=== PATIENT | male | born 1980 | race Caucasian/White ===

== ENCOUNTER 2022-10-01 13:04 | Inpatient (IN) ==
--- NOTE | 2022-10-01 13:16 | Emergency Department Note ---
History of Present Illness General Chief complaint: Shortness of Breath/Dyspnea Stated complaint: TROUBLE BREATHING Time Seen by Provider: 10/01/22 13:15 History of Present Illness Maximum Pain Intensity: 8 This is a 42-year-old male with a history of COPD, CO, atrial fibrillation on Eliquis, diabetes, medical noncompliance, who presents with a cough, chills, and shortness of breath that began today. He feels like he cannot catch his breath. He is coughing so hard that it causes him to gag. He endorses a little bit of diarrhea recently. Could not warm up this morning, did not check his temperature. Feels like he is dehydrated, has been trying to drink fluids but is very thirsty. Uses a daily inhaler for his COPD but is out of his albuterol rescue inhaler. Has required steroids for COPD exacerbations in the past and he feels like he is to the point where he needs steroids for his breathing. Is in and out of atrial fibrillation. Has been taking his Eliquis as prescribe d. 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 He also has an implanted defibrillator in place, had an CO in 2020. Endorses a history of immunosuppression though he is unsure if he takes any medications for this. Has seen an hot knife cutter in the past. Has been feeling very lightheaded when he gets up and this caused him to fall today, though denies any significant trauma or hitting his head. Has not injured himself with any recent falls. He used to live in this area and was followed by [facility] in [place], moved to [place] for 2 years, and recently moved back 2 weeks ago. Used to be a 6 pack a day smoker, is down to 3 cigarettes/day. Tried smoking today but that did not agree with his respiratory system. Home Medications Medication Instructions Recorded Confirmed Type acetaminophen 325 mg tablet 650 mg PO Q6H PRN PAIN/FEVER 10/01/22 10/01/22 History (Tylenol) apixaban 5 mg tablet (Eliquis) 5 mg PO BID 10/01/22 10/01/22 History cetirizine 10 mg tablet (Zyrtec) 10 mg PO DAILY PRN SEASONAL 10/01/22 10/01/22 History ALLERGIES fluticasone 100 mcg-salmeterol 50 1 inh inhalation BID 10/01/22 10/01/22 History mcg/dose blistr powdr for inhalation (Advair Diskus) furosemide 40 mg tablet (Lasix) 40 mg PO AMHS 10/01/22 10/01/22 History menthol 5 % topical patch (Icy Hot 1 patch topical DAILY PRN Back Pain 10/01/22 10/01/22 History (menthol)) metoprolol succinate 25 mg 50 mg PO DAILY 10/01/22 10/01/22 History tablet,extended release 24 hr mupirocin 2 % topical ointment 1 applic topical DAILY 10/01/22 10/01/22 History omeprazole 20 mg tablet,delayed 20 mg PO QAM 10/01/22 10/01/22 History release ondansetron HCl 8 mg tablet 8 mg PO Q8H PRN NAUSEA/VOMITING 10/01/22 10/01/22 History pediatric multivitamin no.42 1 tab PO DAILY 10/01/22 10/01/22 History (Children's Multivitamin chewable tablet) quetiapine 100 mg tablet (Seroquel) 100 mg PO HS 10/01/22 10/01/22 History sacubitril 24 mg-valsartan 26 mg 1 tab PO BID 10/01/22 10/01/22 History tablet (Entresto) venlafaxine 75 mg capsule,extended 75 mg PO QAM 10/01/22 10/01/22 History release 24 hr (Effexor XR) Allergies Allergy/AdvReac Type Severity Reaction Status Date / Time azithromycin Allergy Severe Anaphylaxis Verified 10/01/22 14:53 pollen extracts Allergy Intermediate SNEEZING, Verified 10/01/22 15:00 CONGESTION sulfamethoxazole Allergy Intermediate Hives Verified 10/01/22 14:53 [From Bactrim] trimethoprim [From Bactrim] Allergy Intermediate Hives Verified 10/01/22 14:53 Past Med/Surg History Medical History Cardiac defibrillator in place COPD (chronic obstructive pulmonary disease) Heart failure Respiratory failure Surgical History No pertinent past surgical history Social History Smoking Status: Current every day smoker Tobacco Type: Cigarettes Cigarettes Per Day: 3; Hx Alcohol Use: No Hx Substance Use: No Preferred Language: Icelandic Supervisor Fine Grading Required: No Beliefs That Will Affect Care: None Current Living Situation: Family Feels Safe at Home: Yes Safety Concerns: Feels Safe At This Time Assistive Devices: CPAP Review of Systems See HPI for pertinent positives & negatives. and A total of 10 systems reviewed and were otherwise negative Physical Exam Vital Signs Vital Signs - 24 hr 10/01/22 13:07 10/01/22 14:00 10/01/22 14:17 Temperature 97.0 F L Temperature Source Temporal Artery Scan Pulse Rate 77 Pulse Rate [Apical] 130 H Pulse Rate from SpO2 Sensor Respiratory Rate 18 26 H Respiratory Effort / Characteristics Non-Labored Spontaneous Respiratory Depth Normal Respiratory Pattern Regular Blood Pressure 120/74 Blood Pressure Mean 89 Pulse Oximetry 93 92 Oxygen Delivery Method Room Air Nasal Cannula BiPAP Oxygen Flow Rate 2 Fraction of Inspired Oxygen 21 Sepsis Recent Fever Within 48 Hours No Sepsis New/Unexplained Change in Mental Status N/A Sepsis Action Taken by Nursing No Action Required Oxygen Flow Rate - Titration Pulse Oximetry Post Tiitration 10/01/22 14:17 10/01/22 14:22 10/01/22 14:25 Temperature Temperature Source Pulse Rate 130 H 139 H 133 H Pulse Rate [Apical] Pulse Rate from SpO2 Sensor 103 H Respiratory Rate 26 H 27 H Respiratory Effort / Characteristics Non-Labored Spontaneous Respiratory Depth Normal Respiratory Pattern Regular Blood Pressure 130/78 Blood Pressure Mean Pulse Oximetry 92 93 Oxygen Delivery Method BiPAP Oxygen Flow Rate Fraction of Inspired Oxygen 21 Sepsis Recent Fever Within 48 Hours Sepsis New/Unexplained Change in Mental Status Sepsis Action Taken by Nursing Oxygen Flow Rate - Titration Pulse Oximetry Post Tiitration 10/01/22 14:30 10/01/22 14:35 10/01/22 14:36 Temperature Temperature Source Pulse Rate 115 H 111 H Pulse Rate [Apical] Pulse Rate from SpO2 Sensor 98 H 93 H Respiratory Rate 32 H 20 Respiratory Effort / Characteristics Respiratory Depth Respiratory Pattern Blood Pressure 90/59 L Blood Pressure Mean 69 Pulse Oximetry 95 95 Oxygen Delivery Method BiPAP BiPAP Oxygen Flow Rate Fraction of Inspired Oxygen Sepsis Recent Fever Within 48 Hours Sepsis New/Unexplained Change in Mental Status Sepsis Action Taken by Nursing Oxygen Flow Rate - Titration Pulse Oximetry Post Tiitration 10/01/22 14:36 10/01/22 13:45 10/01/22 14:40 Temperature Temperature Source Pulse Rate 111 H 113 H Pulse Rate [Apical] Pulse Rate from SpO2 Sensor 108 H 99 H Respiratory Rate 26 H 16 Respiratory Effort / Characteristics Respiratory Depth Respiratory Pattern Blood Pressure Blood Pressure Mean Pulse Oximetry 95 96 Oxygen Delivery Method BiPAP Room Air BiPAP Oxygen Flow Rate Fraction of Inspired Oxygen Sepsis Recent Fever Within 48 Hours Sepsis New/Unexplained Change in Mental Status Sepsis Action Taken by Nursing Oxygen Flow Rate - Titration Pulse Oximetry Post Tiitration 10/01/22 14:45 10/01/22 14:50 10/01/22 14:55 Temperature Temperature Source Pulse Rate 115 H 111 H 116 H Pulse Rate [Apical] Pulse Rate from SpO2 Sensor 92 H 108 H 92 H Respiratory Rate 23 20 22 Respiratory Effort / Characteristics Respiratory Depth Respiratory Pattern Blood Pressure Blood Pressure Mean Pulse Oximetry 96 95 94 Oxygen Delivery Method BiPAP BiPAP BiPAP Oxygen Flow Rate Fraction of Inspired Oxygen Sepsis Recent Fever Within 48 Hours Sepsis New/Unexplained Change in Mental Status Sepsis Action Taken by Nursing Oxygen Flow Rate - Titration Pulse Oximetry Post Tiitration 10/01/22 15:00 10/01/22 15:00 10/01/22 15:05 Temperature Temperature Source Pulse Rate 114 H 107 H Pulse Rate [Apical] Pulse Rate from SpO2 Sensor Respiratory Rate 21 18 Respiratory Effort / Characteristics Respiratory Depth Respiratory Pattern Blood Pressure 118/65 Blood Pressure Mean 82 Pulse Oximetry Oxygen Delivery Method BiPAP Oxygen Flow Rate Fraction of Inspired Oxygen Sepsis Recent Fever Within 48 Hours Sepsis New/Unexplained Change in Mental Status Sepsis Action Taken by Nursing Oxygen Flow Rate - Titration Pulse Oximetry Post Tiitration 10/01/22 15:10 10/01/22 15:15 10/01/22 15:16 Temperature Temperature Source Pulse Rate 116 H 112 H Pulse Rate [Apical] Pulse Rate from SpO2 Sensor 111 H Respiratory Rate 23 18 Respiratory Effort / Characteristics Respiratory Depth Respiratory Pattern Blood Pressure 104/60 Blood Pressure Mean 74 Pulse Oximetry 94 Oxygen Delivery Method BiPAP Oxygen Flow Rate Fraction of Inspired Oxygen Sepsis Recent Fever Within 48 Hours Sepsis New/Unexplained Change in Mental Status Sepsis Action Taken by Nursing Oxygen Flow Rate - Titration Pulse Oximetry Post Tiitration 10/01/22 15:16 10/01/22 13:45 10/01/22 15:20 Temperature Temperature Source Pulse Rate 113 H 115 H Pulse Rate [Apical] Pulse Rate from SpO2 Sensor 94 H 91 H Respiratory Rate 26 H 24 Respiratory Effort / Characteristics Spontaneous Respiratory Depth Respiratory Pattern Blood Pressure Blood Pressure Mean Pulse Oximetry 95 95 Oxygen Delivery Method BiPAP Oxygen Flow Rate Fraction of Inspired Oxygen Sepsis Recent Fever Within 48 Hours Sepsis New/Unexplained Change in Mental Status Sepsis Action Taken by Nursing Oxygen Flow Rate - Titration Pulse Oximetry Post Tiitration 10/01/22 15:25 10/01/22 15:30 10/01/22 15:30 Temperature Temperature Source Pulse Rate 117 H 115 H Pulse Rate [Apical] Pulse Rate from SpO2 Sensor 90 101 H Respiratory Rate 15 25 H Respiratory Effort / Characteristics Respiratory Depth Respiratory Pattern Blood Pressure 105/61 Blood Pressure Mean 75 Pulse Oximetry 97 98 Oxygen Delivery Method Oxygen Flow Rate Fraction of Inspired Oxygen Sepsis Recent Fever Within 48 Hours Sepsis New/Unexplained Change in Mental Status Sepsis Action Taken by Nursing Oxygen Flow Rate - Titration Pulse Oximetry Post Tiitration 10/01/22 15:35 10/01/22 15:40 10/01/22 15:44 Temperature Temperature Source Pulse Rate 120 H 110 H 131 H Pulse Rate [Apical] Pulse Rate from SpO2 Sensor 115 H 93 H 90 Respiratory Rate 20 23 23 Respiratory Effort / Characteristics Respiratory Depth Respiratory Pattern Blood Pressure Blood Pressure Mean Pulse Oximetry 97 95 93 Oxygen Delivery Method Oxygen Flow Rate Fraction of Inspired Oxygen Sepsis Recent Fever Within 48 Hours Sepsis New/Unexplained Change in Mental Status Sepsis Action Taken by Nursing Oxygen Flow Rate - Titration Pulse Oximetry Post Tiitration 10/01/22 15:45 10/01/22 15:45 10/01/22 15:50 Temperature Temperature Source Pulse Rate 128 H 120 H Pulse Rate [Apical] Pulse Rate from SpO2 Sensor 121 H 95 H Respiratory Rate 23 21 Respiratory Effort / Characteristics Respiratory Depth Respiratory Pattern Blood Pressure 95/64 L Blood Pressure Mean 74 Pulse Oximetry 95 94 Oxygen Delivery Method Oxygen Flow Rate Fraction of Inspired Oxygen Sepsis Recent Fever Within 48 Hours Sepsis New/Unexplained Change in Mental Status Sepsis Action Taken by Nursing Oxygen Flow Rate - Titration Pulse Oximetry Post Tiitration 10/01/22 15:55 10/01/22 16:00 10/01/22 16:01 Temperature Temperature Source Pulse Rate 150 H 129 H Pulse Rate [Apical] Pulse Rate from SpO2 Sensor 133 H Respiratory Rate 31 H 24 Respiratory Effort / Characteristics Respiratory Depth Respiratory Pattern Blood Pressure 100/66 100/66 Blood Pressure Mean 77 77 Pulse Oximetry 96 Oxygen Delivery Method Oxygen Flow Rate Fraction of Inspired Oxygen Sepsis Recent Fever Within 48 Hours Sepsis New/Unexplained Change in Mental Status Sepsis Action Taken by Nursing Oxygen Flow Rate - Titration Pulse Oximetry Post Tiitration 10/01/22 16:01 10/01/22 16:05 10/01/22 16:10 Temperature Temperature Source Pulse Rate 117 H 113 H 113 H Pulse Rate [Apical] Pulse Rate from SpO2 Sensor 112 H 105 H Respiratory Rate 27 H 23 22 Respiratory Effort / Characteristics Respiratory Depth Respiratory Pattern Blood Pressure Blood Pressure Mean Pulse Oximetry 95 94 Oxygen Delivery Method Oxygen Flow Rate Fraction of Inspired Oxygen Sepsis Recent Fever Within 48 Hours Sepsis New/Unexplained Change in Mental Status Sepsis Action Taken by Nursing Oxygen Flow Rate - Titration Pulse Oximetry Post Tiitration 10/01/22 16:15 10/01/22 16:15 10/01/22 16:20 Temperature Temperature Source Pulse Rate 120 H 114 H Pulse Rate [Apical] Pulse Rate from SpO2 Sensor 96 H 98 H Respiratory Rate 24 21 Respiratory Effort / Characteristics Respiratory Depth Respiratory Pattern Blood Pressure 89/67 L Blood Pressure Mean 74 Pulse Oximetry 94 97 Oxygen Delivery Method Oxygen Flow Rate Fraction of Inspired Oxygen Sepsis Recent Fever Within 48 Hours Sepsis New/Unexplained Change in Mental Status Sepsis Action Taken by Nursing Oxygen Flow Rate - Titration Pulse Oximetry Post Tiitration 10/01/22 16:25 10/01/22 16:30 10/01/22 16:35 Temperature Temperature Source Pulse Rate 114 H 129 H 113 H Pulse Rate [Apical] Pulse Rate from SpO2 Sensor 99 H 114 H 107 H Respiratory Rate 23 23 24 Respiratory Effort / Characteristics Respiratory Depth Respiratory Pattern Blood Pressure Blood Pressure Mean Pulse Oximetry 93 93 91 Oxygen Delivery Method Oxygen Flow Rate Fraction of Inspired Oxygen Sepsis Recent Fever Within 48 Hours Sepsis New/Unexplained Change in Mental Status Sepsis Action Taken by Nursing Oxygen Flow Rate - Titration Pulse Oximetry Post Tiitration 10/01/22 16:40 10/01/22 16:45 10/01/22 16:45 Temperature Temperature Source Pulse Rate 113 H 107 H Pulse Rate [Apical] Pulse Rate from SpO2 Sensor 113 H 104 H Respiratory Rate 30 H 20 Respiratory Effort / Characteristics Respiratory Depth Respiratory Pattern Blood Pressure 119/76 Blood Pressure Mean 90 Pulse Oximetry 92 90 Oxygen Delivery Method Room Air Oxygen Flow Rate Fraction of Inspired Oxygen Sepsis Recent Fever Within 48 Hours Sepsis New/Unexplained Change in Mental Status Sepsis Action Taken by Nursing Oxygen Flow Rate - Titration Pulse Oximetry Post Tiitration 10/01/22 16:50 10/01/22 16:55 10/01/22 17:00 Temperature Temperature Source Pulse Rate 113 H 109 H Pulse Rate [Apical] Pulse Rate from SpO2 Sensor 88 103 H Respiratory Rate 20 22 Respiratory Effort / Characteristics Respiratory Depth Respiratory Pattern Blood Pressure 113/68 Blood Pressure Mean 83 Pulse Oximetry 92 88 L Oxygen Delivery Method Room Air Room Air Oxygen Flow Rate Fraction of Inspired Oxygen Sepsis Recent Fever Within 48 Hours Sepsis New/Unexplained Change in Mental Status Sepsis Action Taken by Nursing Oxygen Flow Rate - Titration Pulse Oximetry Post Tiitration 10/01/22 17:00 10/01/22 17:07 10/01/22 16:00 Temperature 98.1 F Temperature Source Oral Pulse Rate 106 H Pulse Rate [Apical] Pulse Rate from SpO2 Sensor 105 H Respiratory Rate 18 Respiratory Effort / Characteristics Respiratory Depth Respiratory Pattern Blood Pressure Blood Pressure Mean Pulse Oximetry 91 85 L Oxygen Delivery Method Room Air Nasal Cannula Oxygen Flow Rate 0 Fraction of Inspired Oxygen Sepsis Recent Fever Within 48 Hours Sepsis New/Unexplained Change in Mental Status Sepsis Action Taken by Nursing Oxygen Flow Rate - Titration 2 Pulse Oximetry Post Tiitration 91 10/01/22 17:05 10/01/22 17:10 Temperature Temperature Source Pulse Rate 109 H 101 H Pulse Rate [Apical] Pulse Rate from SpO2 Sensor 103 H 101 H Respiratory Rate 23 23 Respiratory Effort / Characteristics Respiratory Depth Respiratory Pattern Blood Pressure Blood Pressure Mean Pulse Oximetry 96 85 L Oxygen Delivery Method Oxygen Flow Rate Fraction of Inspired Oxygen Sepsis Recent Fever Within 48 Hours Sepsis New/Unexplained Change in Mental Status Sepsis Action Taken by Nursing Oxygen Flow Rate - Titration Pulse Oximetry Post Tiitration CONSTITUTIONAL: Obese, ill appearing, in mild distress. Intermittently dozes, able to be aroused with verbal stimuli. HEAD: Normocephalic, atraumatic. EYES: PERRL, conjunctivae normal, extraocular muscles intact. ENMT: External ears normal. Bilateral TMs normal. Nose with normal external appearance, no congestion. Oral mucous membranes dry. Oropharynx normal. NECK: Full active range of motion. LYMPHATIC: No cervical adenopathy RESPIRATORY: Tachypneic. Unable to speak in complete sentences. Intermittently coughing. Decreased breath sounds in all lung méndez. Wheeze appreciated with cough. CARDIOVASCULAR: Regular rate, irregular rhythm. No murmurs rubs or gallops ABDOMEN: Normal bowel sounds. Soft, nontender, no peritonitis. No masses. No CVA tenderness bilaterally. MUSCULOSKELETAL: Moves all extremities at all joints without pain or difficulty. No cyanosis or edema in lower extremities, no tenderness. SKIN: [place], warm, dry. NEUROLOGIC: Dozes with rest. Able to be aroused with verbal stimulus. Otherwise oriented. Gaze is conjugate. Face symmetric, speech normal. Moves head and all four extremities spontaneously. Sensation and strength grossly intact. PSYCHIATRIC: Anxious appearing. Course Reevaluation(s) Reevaluation #1: Was notified that the patient was in SVT based on his EKG in the 160s. I evaluated him at bedside. Heart rate is between [address] Torres was notified and evaluated the patient at bedside as well. Patient still answering questions appropriately though does fall asleep when left alone, re sponds to verbal stimulus. It appears the patient is between SVT and atrial fibrillation. IV fluids administered. Placed on BiPAP. Xopenex ordered. Time: 14:06 Administered Medications Ipratropium Duarte (Ipratropium Duarte Neb Soln 0.02% 2.5 Ml Vial) 0.5 mg NEB QID SATURNINO Stop: 10/31/22 20:59 Last Admin: 10/01/22 21:09 Dose: 0.5 mg Documented By: KENDRA Levalbuterol HCl (Levalbuterol Hcl 0.63 Mg/3 Ml Neb) 0.63 mg NEB QID SATURNINO; Protocol Stop: 10/31/22 20:59 Last Admin: 10/01/22 21:09 Dose: 0.63 mg Documented By: KENDRA Discontinued Medications Adenosine (Adenosine Iv Soln 3 Mg/Ml 2 Ml Vial) 6 mg IV NOW STA Stop: 10/01/22 13:55 Last Admin: 10/01/22 15:25 Dose: Not Given Documented By: ABRAM Albuterol (Albut/Ipratrop 3mg/0.5mg Neb 3 Ml Vial) 3 ml NEB NOW STA; Protocol Stop: 10/01/22 13:37 Last Admin: 10/01/22 14:21 Dose: Not Given Documented By: KENNY Dexamethasone Sodium Phosphate (DexamethasonePf 10 Mg/Ml Vial) 10 mg PO NOW ONE Stop: 10/01/22 13:37 Last Admin: 10/01/22 15:25 Dose: Not Given Documented By: ABRAM Sodium Chloride (Nss 1000ml) 1,000 mls @ 500 mls/hr IV .Q2H ONE Stop: 10/01/22 15:35 Last Infusion: 10/01/22 14:15 Dose: 0 mls/hr Documented By: Admin: 10/01/22 13:45 Dose: 500 mls/hr Documented By: ABRAM Magnesium Sulfate/Dextrose (Magnesium Sulfate / D5w) 1 gm in 100 mls @ 50 mls/hr IV ONE ONE Stop: 10/01/22 18:13 Last Infusion: 10/01/22 17:26 Dose: 0 mls/hr Documented By: Admin: 10/01/22 16:26 Dose: 50 mls/hr Documented By: ABRAM Sodium Chloride (Nss 1000ml) 500 mls @ 999 mls/hr IV .Q31M ONE Stop: 10/01/22 16:50 Last Infusion: 10/01/22 16:57 Dose: 0 mls/hr Documented By: Admin: 10/01/22 16:26 Dose: 999 mls/hr Documented By: ABRAM Levalbuterol HCl (Levalbuterol Hcl 1.25 Mg/3 Ml Neb) 2.5 mg NEB NOW STA; Protocol Stop: 10/01/22 14:05 Last Admin: 10/01/22 14:21 Dose: 2.5 mg Documented By: KENNY Methylprednisolone (Methylprednisolone 125 Mg/2 Ml Vial) 60 mg IV NOW STA Stop: 10/01/22 15:15 Last Admin: 10/01/22 15:22 Dose: 60 mg Documented By: ABRAM Metoprolol Tartrate (Metoprolol Tartrate 1 Mg/Ml Vial) 5 mg IV Q5M PRN PRN Reason: Tachycardia Stop: 10/31/22 14:15 Last Admin: 10/01/22 14:22 Dose: 5 mg Documented By: LOURDES Oseltamivir Phosphate (Oseltamivir Phosphate 75 Mg Cap) 75 mg PO NOW STA; Protocol Stop: 10/01/22 15:43 Last Admin: 10/01/22 15:49 Dose: 75 mg Documented By: ABRAM Medical Decision Making Differential Diagnosis Upper respiratory infection, COPD exacerbation, pneumonia, arrhythmia, electrolyte imbalance, dehydration, CHF exacerbation, CO, PE, sepsis, among other pathology Medical Records Attestation: I reviewed the patient's medical records. (Records were reviewed from [facility] cardiology from 09/27/2022. Records were retrieved from [place].) Laboratory Data Result diagrams: 10/01/22 13:53 10/01/22 13:53 Lab Results 10/01/22 10/01/22 10/01/22 Range/Units 13:52 13:53 13:53 WBC 9.51 (4.8-10.8) K/ul RBC 4.67 (4.63-6.08) M/uL Hgb 14.2 (14.0-18.0) g/dl Hct 43.3 (40.1-51.0) % MCV 92.7 (80.0-100.0) fL MCH 30.4 (25.0-34.0) pg MCHC 32.8 (32.0-36.0) g/dL RDW Std Deviation 47.8 H (36.4-46.3) fL RDW Coeff of Pradeep 14.2 (11.5-14.5) % Plt Count 258 (130-400) K/uL MPV 9.3 L (9.4-12.4) fL Immature Gran % (Auto) 0.7 % Neut % (Auto) 78.4 % Lymph % (Auto) 10.2 % [place] % (Auto) 8.3 % Eos % (Auto) 2.0 % Baso % (Auto) 0.4 % Neut # (Auto) 7.45 H (1.4-6.5) K/uL Lymph # (Auto) 0.97 L (1.2-3.4) K/uL [place] # (Auto) 0.79 (0.24-0.82) K/uL Eos # (Auto) 0.19 (0-0.50) K/uL Baso # (Auto) 0.04 (0-0.2) K/uL Immature Gran # (Auto) 0.07 H (0.00-0.02) K/uL Absolute Nucleated RBC 0.02 H (0-0) K/uL Nucleated RBC % (auto) 0.2 % PT (9.0-12.0) Seconds INR (0.9-1.1) APTT (21.0-31.0) Seconds PTT Ratio VBG pH (7.36-7.41) VBG pCO2 (38-50) mmHg VBG pO2 mmHg VBG HCO3 mmol/L VBG O2 Saturation % VBG Base Excess mEq/L Sodium 136 (136-145) mmol/L Potassium 4.3 (3.5-5.1) mmol/L Chloride 97 L (98-107) mmol/L Carbon Dioxide 32 (21-32) mmol/L Anion Gap 7 (3-11) BUN 14 (6-23) mg/dl Creatinine 1.25 (0.6-1.4) mg/dl Est Cr Clr Drug Dosing Not Reportable Est GFR ( Amer) 81.2 ml/min Est GFR (Non-Af Amer) 70.1 ml/min BUN/Creatinine Ratio 11.2 (10-20) Glucose 165 H (70-99(Fasting)) mg/dl Calcium 8.7 (8.5-10.1) mg/dl Phosphorus (2.5-4.9) mg/dl Magnesium (1.7-2.4) mg/dl Total Bilirubin 0.7 (0.2-1.0) mg/dl AST 17 (13-39) U/L ALT 14 (7-52) U/L Alkaline Phosphatase 88 (34-104) U/L Troponin I High Sens 9.4 (0-20) pg/ml B-Natriuretic Peptide (0-100) pg/ml Total Protein 7.5 (6.0-8.3) gm/dl Albumin 3.9 (3.4-5.0) gm/dl Globulin 3.6 (2.5-4.0) gm/dl Albumin/Globulin Ratio 1.1 (0.9-2) Adenovirus (PCR) Not Detected (NotDetected) B. pertussis DNA (PCR) Not Detected (NotDetected) B.parapertussis DNA PCR Not Detected (NotDetected) C. pneumoniae DNA (PCR) Not Detected (NotDetected) Coronavirus OC43 (PCR) Not Detected (NotDetected) Coronavirus HKU1 (PCR) Not Detected (NotDetected) Coronavirus 229E (PCR) Not Detected (NotDetected) SARS-CoV-2 (PCR) Not Detected (NotDetected) Coronavirus NL63 (PCR) Not Detected (NotDetected) Human Metapneumovir PCR Not Detected (NotDetected) Influenza A (H3) PCR DETECTED A* (NotDetected) Influenza Type B (PCR) Not Detected (NotDetected) M. pneumoniae (PCR) Not Detected (NotDetected) Parainfluenza 1 (PCR) Not Detected (NotDetected) Parainfluenza 2 (PCR) Not Detected (NotDetected) Parainfluenza 3 (PCR) Not Detected (NotDetected) Parainfluenza 4 (PCR) Not Detected (NotDetected) RSV (PCR) Not Detected (NotDetected) Entero/Rhino (PCR) Not Detected (NotDetected) 10/01/22 10/01/22 10/01/22 Range/Units 14:39 14:39 14:39 WBC (4.8-10.8) K/ul RBC (4.63-6.08) M/uL Hgb (14.0-18.0) g/dl Hct (40.1-51.0) % MCV (80.0-100.0) fL MCH (25.0-34.0) pg MCHC (32.0-36.0) g/dL RDW Std Deviation (36.4-46.3) fL RDW Coeff of Pradeep (11.5-14.5) % Plt Count (130-400) K/uL MPV (9.4-12.4) fL Immature Gran % (Auto) % Neut % (Auto) % Lymph % (Auto) % [place] % (Auto) % Eos % (Auto) % Baso % (Auto) % Neut # (Auto) (1.4-6.5) K/uL Lymph # (Auto) (1.2-3.4) K/uL [place] # (Auto) (0.24-0.82) K/uL Eos # (Auto) (0-0.50) K/uL Baso # (Auto) (0-0.2) K/uL Immature Gran # (Auto) (0.00-0.02) K/uL Absolute Nucleated RBC (0-0) K/uL Nucleated RBC % (auto) % PT 11.2 (9.0-12.0) Seconds INR 1.1 (0.9-1.1) APTT 28.3 (21.0-31.0) Seconds PTT Ratio 1.0 VBG pH 7.45 H (7.36-7.41) VBG pCO2 47 (38-50) mmHg VBG pO2 64 mmHg VBG HCO3 33 mmol/L VBG O2 Saturation 94.1 % VBG Base Excess 7.5 mEq/L Sodium (136-145) mmol/L Potassium (3.5-5.1) mmol/L Chloride (98-107) mmol/L Carbon Dioxide (21-32) mmol/L Anion Gap (3-11) BUN (6-23) mg/dl Creatinine (0.6-1.4) mg/dl Est Cr Clr Drug Dosing Est GFR ( Amer) ml/min Est GFR (Non-Af Amer) ml/min BUN/Creatinine Ratio (10-20) Glucose (70-99(Fasting)) mg/dl Calcium (8.5-10.1) mg/dl Phosphorus 1.9 L (2.5-4.9) mg/dl Magnesium 1.3 L (1.7-2.4) mg/dl Total Bilirubin (0.2-1.0) mg/dl AST (13-39) U/L ALT (7-52) U/L Alkaline Phosphatase (34-104) U/L Troponin I High Sens (0-20) pg/ml B-Natriuretic Peptide (0-100) pg/ml Total Protein (6.0-8.3) gm/dl Albumin (3.4-5.0) gm/dl Globulin (2.5-4.0) gm/dl Albumin/Globulin Ratio (0.9-2) Adenovirus (PCR) (NotDetected) B. pertussis DNA (PCR) (NotDetected) B.parapertussis DNA PCR (NotDetected) C. pneumoniae DNA (PCR) (NotDetected) Coronavirus OC43 (PCR) (NotDetected) Coronavirus HKU1 (PCR) (NotDetected) Coronavirus 229E (PCR) (NotDetected) SARS-CoV-2 (PCR) (NotDetected) Coronavirus NL63 (PCR) (NotDetected) Human Metapneumovir PCR (NotDetected) Influenza A (H3) PCR (NotDetected) Influenza Type B (PCR) (NotDetected) M. pneumoniae (PCR) (NotDetected) Parainfluenza 1 (PCR) (NotDetected) Parainfluenza 2 (PCR) (NotDetected) Parainfluenza 3 (PCR) (NotDetected) Parainfluenza 4 (PCR) (NotDetected) RSV (PCR) (NotDetected) Entero/Rhino (PCR) (NotDetected) 10/01/22 10/01/22 Range/Units 14:39 16:05 WBC (4.8-10.8) K/ul RBC (4.63-6.08) M/uL Hgb (14.0-18.0) g/dl Hct (40.1-51.0) % MCV (80.0-100.0) fL MCH (25.0-34.0) pg MCHC (32.0-36.0) g/dL RDW Std Deviation (36.4-46.3) fL RDW Coeff of Pradeep (11.5-14.5) % Plt Count (130-400) K/uL MPV (9.4-12.4) fL Immature Gran % (Auto) % Neut % (Auto) % Lymph % (Auto) % [place] % (Auto) % Eos % (Auto) % Baso % (Auto) % Neut # (Auto) (1.4-6.5) K/uL Lymph # (Auto) (1.2-3.4) K/uL [place] # (Auto) (0.24-0.82) K/uL Eos # (Auto) (0-0.50) K/uL Baso # (Auto) (0-0.2) K/uL Immature Gran # (Auto) (0.00-0.02) K/uL Absolute Nucleated RBC (0-0) K/uL Nucleated RBC % (auto) % PT (9.0-12.0) Seconds INR (0.9-1.1) APTT (21.0-31.0) Seconds PTT Ratio VBG pH (7.36-7.41) VBG pCO2 (38-50) mmHg VBG pO2 mmHg VBG HCO3 mmol/L VBG O2 Saturation % VBG Base Excess mEq/L Sodium (136-145) mmol/L Potassium (3.5-5.1) mmol/L Chloride (98-107) mmol/L Carbon Dioxide (21-32) mmol/L Anion Gap (3-11) BUN (6-23) mg/dl Creatinine (0.6-1.4) mg/dl Est Cr Clr Drug Dosing Est GFR ( Amer) ml/min Est GFR (Non-Af Amer) ml/min BUN/Creatinine Ratio (10-20) Glucose (70-99(Fasting)) mg/dl Calcium (8.5-10.1) mg/dl Phosphorus (2.5-4.9) mg/dl Magnesium (1.7-2.4) mg/dl Total Bilirubin (0.2-1.0) mg/dl AST (13-39) U/L ALT (7-52) U/L Alkaline Phosphatase (34-104) U/L Troponin I High Sens 10.6 (0-20) pg/ml B-Natriuretic Peptide 54 (0-100) pg/ml Total Protein (6.0-8.3) gm/dl Albumin (3.4-5.0) gm/dl Globulin (2.5-4.0) gm/dl Albumin/Globulin Ratio (0.9-2) Adenovirus (PCR) (NotDetected) B. pertussis DNA (PCR) (NotDetected) B.parapertussis DNA PCR (NotDetected) C. pneumoniae DNA (PCR) (NotDetected) Coronavirus OC43 (PCR) (NotDetected) Coronavirus HKU1 (PCR) (NotDetected) Coronavirus 229E (PCR) (NotDetected) SARS-CoV-2 (PCR) (NotDetected) Coronavirus NL63 (PCR) (NotDetected) Human Metapneumovir PCR (NotDetected) Influenza A (H3) PCR (NotDetected) Influenza Type B (PCR) (NotDetected) M. pneumoniae (PCR) (NotDetected) Parainfluenza 1 (PCR) (NotDetected) Parainfluenza 2 (PCR) (NotDetected) Parainfluenza 3 (PCR) (NotDetected) Parainfluenza 4 (PCR) (NotDetected) RSV (PCR) (NotDetected) Entero/Rhino (PCR) (NotDetected) Imaging Data Attestation: I personally reviewed and interpreted this imaging study as follows: (I agree with the radiologist's interpretation) Radiologist's Impression: Chest X-Ray 10/01/22 13:36 XR chest 1V portable HISTORY: 42 years-old Male dyspnea, suspect COPD exacerbation acute shortness of breath COMPARISON: None TECHNIQUE: Portable AP view of the chest FINDINGS: Cardiac silhouette is enlarged. Single lead left subclavian pacer/AICD. No pneumothorax or overt pulmonary edema. Blunting of the costophrenic angles. Mild right hemidiaphragmatic elevation. Bones appear grossly intact. IMPRESSION: 1. Cardiomegaly without pulmonary edema. 2. Blunting of the costophrenic angles may be secondary to atelectasis versus trace effusions. ACT 112: Negative or not required by law. The above report was generated using voice recognition software. It may contain grammatical, syntax or spelling errors. Electronically signed by: Christoph Leavitt M.D. 10/01/2022 2:16 PM ECG Data Attestation: I personally reviewed and interpreted this ECG as follows: Additional Comments: EKG #1: Supraventricular tachycardia rate of 163. Evidence of inferior infarct. No prior to compare. EKG #2: Sinus tachycardia, irregular versus atrial fibrillation. Intervals within normal limits. Left axis deviation. Inferior infarct. No acute ST elevation MDM Narrative 42-year-old male with a complex medical history presents with cough, chills, shortness of breath that began today. On initial exam, patient anxious appearing, coughing, tachypneic, drowsy, easily stimulated by verbal command, able to speak in 3-5 word sentences. O2 saturation 93% on room air. Decreased air movement diffusely, wheezy cough. Afebrile. During my evaluation his heart rate was anywhere between 90 and 160 on the pulse oximeter. EKG quickly obtained revealing SVT at 163. ED attending Dr. Torres notified and we both evaluated the patient at bedside. This rhythm quickly turned into rapid atrial fibrillation with several runs of SVT but predominantly stayed in rapid atrial fibrillation. IV fluids were administered, BiPAP placed, treated with methylprednisolone and metoprolol. Order was placed for continuous cardiac monitoring and patient was visualized to remain tachycardic between sinus rhythm and rapid atrial fibrillation in the 120s. Heart rate trended into the low 100s with additional fluids. Pressure remained normal to soft intermittently. Mental status did not change. O2 saturation remained in the low 90s. Chest x-ray shows cardiomegaly without pulmonary edema, blunting of the costophrenic angles atelectasis versus trace pleural effusions. Labs show no leukocytosis or anemia. Mild hyperglycemia at 165, recent A1c 8.0 on 09/27/2022. Magnesium 1.3, repleted in the emergency department. Hypophosphatemia is present at 1.9. [employer] upper respiratory panel was POSITIVE for influenza A. This is likely the etiology of his symptoms. Tamiflu administered as he is high risk for progression of severe disease. First and second troponins are negative. Prior [facility] cardiology records were reviewed, extensive cardiopulmonary history, history of medical noncompliance. Dr. Torres spoke with [facility] hospitalist Dr. Qiu who will admit the patient for ongoing management. Impression & Plan Influenza, Atrial fibrillation, rapid, Hypomagnesemia, Acute exacerbation of chronic obstructive pulmonary disease (COPD), Respiratory failure, Hypophosphatemia Discharge Plan Visit Data Chief Complaint: Shortness of Breath/Dyspnea Stated Complaint: TROUBLE BREATHING ED Provider: Bacilio Torres ED Midlevel Provider: Felice Kingsley Discharge Problem: Influenza, Atrial fibrillation, rapid, Hypomagnesemia, Acute exacerbation of chronic obstructive pulmonary disease (COPD), Respiratory failure, Hypophosphatemia Patient Disposition: Admitted As Inpatient Condition: Fair Discharge Instructions Interventions: ED Discharge Assessment Last Done: 10/01/22 18:29 : Respiratory failure Qualifiers: Chronicity: acute Respiratory failure complication: unspecified whether with hypoxia or hypercapnia Qualified Code(s): J96.00 - Acute respiratory failure, unspecified whether with hypoxia or hypercapnia
[2022-10-01] MEDS ORDERED: ALBUT/IPRATROP 3MG/0.5MG NEB 3 ML VIAL NEB STA (13:36)
[2022-10-01] MEDS ORDERED: SODIUM CHLORIDE 0.9% 1000ML 1,000 ML IV ONE (13:36)
[2022-10-01] MEDS ORDERED: dexAMETHasone**PF** 10 MG/ML VIAL PO ONE (13:36)
[2022-10-01] MEDS ORDERED: ADENOSINE IV SOLN 3 MG/ML 2 ML VIAL IV STA (13:54)
[2022-10-01 14:03] LABS: Basophils # (auto) 0.04 K/uL (0-0.2); Basophils % (auto) 0.4 %; Eosinophils # (auto) 0.19 K/uL (0-0.50); Hematocrit (blood only) 43.3 % (40.1-51.0); Hemoglobin 14.2 g/dl (14.0-18.0); Immature Granulocytes # (auto) 0.07 K/uL (0.00-0.02); Immature Granulocytes % (auto) 0.7 %; Lymphocytes # (auto) 0.97 K/uL (1.2-3.4); Lymphocytes % (auto) 10.2 %; Mean Corpuscular Hemoglobin 30.4 pg (25.0-34.0); Mean Corpuscular Hgb Conc 32.8 g/dL (32.0-36.0); Mean Corpuscular Volume 92.7 fL (80.0-100.0); Mean Platelet Volume 9.3 fL (9.4-12.4); Monocytes # (auto) 0.79 K/uL (0.24-0.82); Monocytes % (auto) 8.3 %; Neutrophils # (auto) 7.45 K/uL (1.4-6.5); Neutrophils % (auto) 78.4 %; Nucleated RBC # (auto) 0.02 K/uL (0-0); Nucleated RBC % (auto) 0.2 %; Platelet Count 258 K/uL (130-400); RDW Coefficient of Variation 14.2 % (11.5-14.5); RDW Standard Deviation 47.8 fL (36.4-46.3); Red Blood Count 4.67 M/uL (4.63-6.08); White Blood Count 9.51 K/ul (4.8-10.8)
[2022-10-01] MEDS ORDERED: LEVALBUTEROL HCL 1.25 MG/3 ML NEB NEB STA (14:04)
--- NOTE | 2022-10-01 14:08 | Emergency Department Note ---
ED Visit Note NAME: NHI DUARTE AGE: 42 SEX: M : 1980 ARRIVES VIA: Walk-In INFORMANT: Patient, ED PROVIDER(S): Bacilio Torres MD Please refer to initial H&P by Felice Sheldon PA-C. I was involved in the patient's care as he developed a tachycarrthymia SVT and a fib w/ RVR. Patient presents due to concern for URI related symptoms. I was asked to evaluate patient by Felice Kingsley PA-C and essentially the primary last puller of the patient. Patient did have a run of SVT. The patient did feel short of breath beginning this morning. His initial triage vitals showed that his heart rate was in the low 90s and may have been irregular. Patient has known history of A. fib. The patient has used a lot of tobacco in the past but is down to about 3 cigarettes/day. The patient does follow with [facility] medicine. Patient denies any chest pains. Cough is nonproductive. No abdominal pain nausea vomiting. Patient did have blood work completed along with an EKG t roponin chest x-ray. Patient did have a Xopenex administered along with dexamethasone IV fluids and BiPAP was placed on the patient due to concern for work of breathing. Improved work of breathing. HR improved as well. Patient admitted by Dr. Qiu. Critical Care: I have personally spent 75 minutes of critical care time in direct management of this patient. This includes bedside care, interpretation of diagnostic studies, and testing, discussion with consultants, patient, and family members, and other require inpatient management activities. This 75 minutes is in excess of all separately billable procedures. : Respiratory failure Qualifiers: Chronicity: acute Respiratory failure complication: unspecified whether with hypoxia or hypercapnia Qualified Code(s): J96.00 - Acute respiratory failure, unspecified whether with hypoxia or hypercapnia
[2022-10-01] MEDS ORDERED: METOPROLOL TARTRATE 1 MG/ML VIAL IV PRN (14:16)
--- NOTE | 2022-10-01 14:17 | XRay Report ---
XR chest 1V portable HISTORY: 42 years-old Male dyspnea, suspect COPD exacerbation acute shortness of breath COMPARISON: None TECHNIQUE: Portable AP view of the chest FINDINGS: Cardiac silhouette is enlarged. Single lead left subclavian pacer/AICD. No pneumothorax or overt pulm onary edema. Blunting of the costophrenic angles. Mild right hemidiaphragmatic elevation. Bones appea r grossly intact. IMPRESSION: 1. Cardiomegaly without pulmonary edema. 2. Blunting of the costophrenic angles may be secondary to atelectasis versus trace effusions. ACT 112: Negative or not required by law. The above report was generated using voice recognition software. It may contain grammatical, syntax o r spelling errors. Electronically signed by: Christoph Leavitt M.D. 10/01/2022 2:16 PM
[2022-10-01 14:27] LABS: Alanine Aminotransferase 14 U/L (7-52); Albumin Globulin Ratio 1.1 (0.9-2); Albumin Level 3.9 gm/dl (3.4-5.0); Alkaline Phosphatase 88 U/L (34-104); Anion Gap 7 (3-11); Aspartate Aminotransferase 17 U/L (13-39); BUN Creatinine Ratio 11.2 (10-20); Bilirubin,Total 0.7 mg/dl (0.2-1.0); Blood Urea Nitrogen 14 mg/dl (6-23); Calcium 8.7 mg/dl (8.5-10.1); Carbon Dioxide 32 mmol/L (21-32); Chloride 97 mmol/L (98-107); Est GFR (African American) 81.2 ml/min; Est GFR (Non-African American) 70.1 ml/min; Globulin 3.6 gm/dl (2.5-4.0); Glucose 165 mg/dl (70-99(Fasting)); Potassium 4.3 mmol/L (3.5-5.1); Sodium 136 mmol/L (136-145); Total Protein 7.5 gm/dl (6.0-8.3)
[2022-10-01 14:29] LABS: Troponin I High Sensitivity 9.4 pg/ml (0-20)
[2022-10-01 15:00] LABS: Adenovirus PCR Not Detected (NotDetected); Bordetella parapertussis PCR Not Detected (NotDetected); Bordetella pertussis PCR Not Detected (NotDetected); Chlamydia pneumoniae PCR Not Detected (NotDetected); Coronavirus 229E PCR Not Detected (NotDetected); Coronavirus CoV-2 (COVID19)PCR Not Detected (NotDetected); Coronavirus HKU1 PCR Not Detected (NotDetected); Coronavirus NL63 PCR Not Detected (NotDetected); Coronavirus OC43PCR Not Detected (NotDetected); Human Metapneumovirus PCR Not Detected (NotDetected); Influenza B PCR Not Detected (NotDetected); Mycoplasma pneumoniae PCR Not Detected (NotDetected); Parainfluenza Virus 1 PCR Not Detected (NotDetected); Parainfluenza Virus 2 PCR Not Detected (NotDetected); Parainfluenza Virus 3 PCR Not Detected (NotDetected); Parainfluenza Virus 4 PCR Not Detected (NotDetected); Respiratory Syncytial VirusPCR Not Detected (NotDetected); Rhinovirus/Enterovirus PCR Not Detected (NotDetected)
[2022-10-01 15:04] LABS: Base Excess VBG 7.5 mEq/L; HCO3 VBG 33 mmol/L; Oxygen Saturation VBG 94.1 %; PCO2 VBG 47 mmHg (38-50); PO2 VBG 64 mmHg; pH VBG 7.45 (7.36-7.41)
[2022-10-01] MEDS ORDERED: methylPREDNISolone 125 MG/2 ML VIAL IV STA (15:14)
[2022-10-01 15:23] LABS: INR 1.1 (0.9-1.1); Partial Thromboplastin Time 28.3 Seconds (21.0-31.0); Prothrombin Time 11.2 Seconds (9.0-12.0)
[2022-10-01 15:24] LABS: Influenza A (H3) PCR DETECTED (NotDetected)
[2022-10-01 15:33] LABS: Magnesium 1.3 mg/dl (1.7-2.4); Phosphorus 1.9 mg/dl (2.5-4.9)
[2022-10-01] MEDS ORDERED: OSELTAMIVIR PHOSPHATE 75 MG CAP PO STA (15:42)
--- NOTE | 2022-10-01 15:59 | History & Physical Report ---
Date of Service October 01, 2022 Assessment & Plan (1) Influenza: Plan: Acute Respiratory failure with hypoxia Secondary to influenza A, COPD Exacerbation H/O SHARYN on CPAP HS --CXR: Cardiomegaly without pulmonary edema. Blunting of the costophrenic angles may be secondary to atelectasis versus trace effusions. -- Started on oseltamivir --Also started on prednisone, nebs, doxycycline --Supplemental oxygen as needed to keep oxygen saturations 88 to 92% Check procalcitonin SVT A. fib RVR H/O P.Afib Sinus tachycardia Was not taking amiodarone as prescribed as concerned for side effects Increase metoprolol to 50mg BID On Eliquis for anticoagulation Currently in sinus tachycardia Consider cardiology evaluation if needed Hypomagnesemia Hypophosphatemia Replace electrolytes as needed Monitor DM Type II: New diagnosis Currently not on any medication HbA1C: 8.0 on 09/27/22 ISS, basal Insulin, Accu checks, Diabetic diet Pharmacy Glycemic control consult breastfeeding educator consulted Ongoing tobacco use disorder Patient refused nicotine patch States trying to cut down smoking H/O PE On Eliquis H/O seizures Currently not on any medications H/O CHF with preserved EF Nonischemic cardiomyopathy Continue Lasix, Entresto, metoprolol CKD stage III Monitor renal function Avoid nephrotoxic agents as able Anxiety and depression Continue home medications Subclinical hypothyroidism Secondary hyperparathyroidism As per records Currently not on medications DVT Px: Eliquis Code Status Full Code History of Present Illness Chief Complaint: Shortness of Breath Primary Care Provider: NO PCP Patient is a 42-year-old male with history of paroxysmal atrial fibrillation on chronic anticoagulation with Eliquis, pulmonary embolism, COPD, CHF S/P ICD, CKD stage III, anxiety and depression, hypertension, dyslipidemia, tobacco use disorder, subclinical hypothyroidism, secondary hyperparathyroidism, h/o noncompliance, seizure disorder, alcohol use and other medical problems presents with history of worsening shortness of breath associated with cough, nausea since 1 day duration. Apparently patient states that he is doing well until yesterday. He reports that he woke up this morning and felt that he was gasping for air. He also noted to have cough with clear expectoration associated with dry heaving and palpitations. He admits to have 3 loose bowel movements today. Patient has been using only albuterol and Advair inhalers as needed and currently out of his rescue inhaler. He is trying to quit smoking and currently smokes 3 cigarettes/day. He reports intermittent palpitations and chills but no fever. He felt very dizzy this morning, resulting in a fall but denies any head trauma or loss of consciousness. States using CPAP at bedtime. He was found to be in and out of atrial fibrillation while in ED. Denies any history of chest pain, pedal edema, wheezing, hemoptysis, fever, headache, numbness, change in vision, vomiting, abdominal pain, dysuria, hematuria. Allergies Allergy/AdvReac Type Severity Reaction Status Date / Time azithromycin Allergy Severe Anaphylaxis Verified 10/01/22 14:53 pollen extracts Allergy Intermediate SNEEZING, Verified 10/01/22 15:00 CONGESTION sulfamethoxazole Allergy Intermediate Hives Verified 10/01/22 14:53 [From Bactrim] trimethoprim [From Bactrim] Allergy Intermediate Hives Verified 10/01/22 14:53 Home Medications Medication Instructions Recorded Confirmed Type acetaminophen 325 mg tablet 650 mg PO Q6H PRN PAIN/FEVER 10/01/22 10/01/22 History (Tylenol) apixaban 5 mg tablet (Eliquis) 5 mg PO BID 10/01/22 10/01/22 History cetirizine 10 mg tablet (Zyrtec) 10 mg PO DAILY PRN SEASONAL 10/01/22 10/01/22 H istory ALLERGIES fluticasone 100 mcg-salmeterol 50 1 inh inhalation BID 10/01/22 10/01/22 History mcg/dose blistr powdr for inhalation (Advair Diskus) furosemide 40 mg tablet (Lasix) 40 mg PO AMHS 10/01/22 10/01/22 History menthol 5 % topical patch (Icy Hot 1 patch topical DAILY PRN Back Pain 10/01/22 10/01/22 History (menthol)) metoprolol succinate 25 mg 50 mg PO DAILY 10/01/22 10/01/22 History tablet,extended release 24 hr mupirocin 2 % topical ointment 1 applic topical DAILY 10/01/22 10/01/22 History omeprazole 20 mg tablet,delayed 20 mg PO QAM 10/01/22 10/01/22 History release ondansetron HCl 8 mg tablet 8 mg PO Q8H PRN NAUSEA/VOMITING 10/01/22 10/01/22 History pediatric multivitamin no.42 1 tab PO DAILY 10/01/22 10/01/22 History (Children's Multivitamin chewable tablet) quetiapine 100 mg tablet (Seroquel) 100 mg PO HS 10/01/22 10/01/22 History sacubitril 24 mg-valsartan 26 mg 1 tab PO BID 10/01/22 10/01/22 History tablet (Entresto) venlafaxine 75 mg capsule,extended 75 mg PO QAM 10/01/22 10/01/22 History release 24 hr (Effexor XR) Past Med/Surg History Medical History Cardiac defibrillator in place COPD (chronic obstructive pulmonary disease) Heart failure Respiratory failure Surgical History No pertinent past surgical history Social History Smoking Status: Current every day smoker Tobacco Type: Cigarettes Preferred Language: Czech Feels Safe at Home: Yes Review of Systems Review of Systems: All systems reviewed & are unremarkable except as noted in Subjective Physical Exam Physical Exam: Physical Exam: Vitals signs as noted above General Appearance:Morbidly Obese, no apparent distress Head: normocephalic, Atraumatic Eyes: normal inspection, EOMI Neck: supple, Trachea midline Respiratory/Chest: Decreased breath sounds, CTA, No accessory muscle use Cardiovascular: S1, S2, Tachycardia, No murmur Abdomen/GI:Soft, Non tender, Bowel sounds present Extremities/Musculoskeletal:normal inspection, Trace edema Neurologic/Psych:AAOX3, grossly no focal neurological deficits Skin: normal color, warm Results & Data Results & Data ([facility]) Vital Signs (Past 12 Hours) Vital Signs Temp Pulse Pulse Resp BP Pulse Ox O2 Del Method 10/01/22 15:45 95/64 L 10/01/22 15:44 131 H 23 93 10/01/22 15:40 110 H 23 95 10/01/22 15:35 120 H 20 97 10/01/22 15:30 115 H 25 H 98 10/01/22 15:30 105/61 10/01/22 15:25 117 H 15 97 10/01/22 15:20 115 H 24 95 10/01/22 15:16 113 H 26 H 95 BiPAP 10/01/22 15:16 104/60 10/01/22 15:15 112 H 18 94 BiPAP 10/01/22 15:10 116 H 23 10/01/22 15:05 107 H 18 10/01/22 15:00 114 H 21 BiPAP 10/01/22 15:00 118/65 10/01/22 14:55 116 H 22 94 BiPAP 10/01/22 14:50 111 H 20 95 BiPAP 10/01/22 14:45 115 H 23 96 BiPAP 10/01/22 14:40 113 H 16 96 BiPAP 10/01/22 13:45 Room Air 10/01/22 14:36 111 H 26 H 95 BiPAP 10/01/22 14:36 90/59 L 10/01/22 14:35 111 H 20 95 BiPAP 10/01/22 14:30 115 H 32 H 95 BiPAP 10/01/22 14:25 133 H 27 H 93 BiPAP 10/01/22 14:22 139 H 130/78 10/01/22 14:17 130 H 26 H 92 10/01/22 14:17 130 H 26 H 92 BiPAP 10/01/22 14:00 Nasal Cannula 10/01/22 13:07 36.1 C L 77 18 120/74 93 Room Air O2 Flow Rate FiO2 10/01/22 15:45 10/01/22 15:44 10/01/22 15:40 10/01/22 15:35 10/01/22 15:30 10/01/22 15:30 10/01/22 15:25 10/01/22 15:20 10/01/22 15:16 10/01/22 15:16 10/01/22 15:15 10/01/22 15:10 10/01/22 15:05 10/01/22 15:00 10/01/22 15:00 10/01/22 14:55 10/01/22 14:50 10/01/22 14:45 10/01/22 14:40 10/01/22 13:45 10/01/22 14:36 10/01/22 14:36 10/01/22 14:35 10/01/22 14:30 10/01/22 14:25 10/01/22 14:22 10/01/22 14:17 21 10/01/22 14:17 21 10/01/22 14:00 2 10/01/22 13:07 Laboratory Results Short CBC 10/01/22 Range/Units 13:53 WBC 9.51 (4.8-10.8) K/ul Hgb 14.2 (14.0-18.0) g/dl Hct 43.3 (40.1-51.0) % Plt Count 258 (130-400) K/uL BMP 10/01/22 13:53 Sodium 136 Potassium 4.3 Chloride 97 L Carbon Dioxide 32 BUN 14 Creatinine 1.25 Glucose 165 H Calcium 8.7 Liver Function 10/01/22 Range/Units 13:53 Total Bilirubin 0.7 (0.2-1.0) mg/dl AST 17 (13-39) U/L ALT 14 (7-52) U/L Alkaline Phosphatase 88 (34-104) U/L Albumin 3.9 (3.4-5.0) gm/dl Diagnostic Findings CXR:Cardiomegaly without pulmonary edema. Blunting of the costophrenic angles may be secondary to atelectasis versus trace effusions. ECG Additional Comments: EKG: Sinus tachycardia, low voltage QRS, QTc 446.
[2022-10-01] MEDS ORDERED: MAGNESIUM SULFATE / D5W 1 GM/100 ML BAG IV ONE ×2 (16:14→19:11)
[2022-10-01] MEDS ORDERED: SODIUM CHLORIDE 0.9% 1000ML 500 ML IV ONE (16:20)
[2022-10-01] MEDS ORDERED: PHARMACY GLYCEMIC MGMT CONSULT PRN (19:11)
[2022-10-01] MEDS ORDERED: ONDANSETRON INJ 2 MG/ML 2 ML VIAL IV PRN (19:11)
[2022-10-01] MEDS ORDERED: GLUCOSE 40% GEL 15 GM TUBE PO PRN (19:11)
[2022-10-01] MEDS ORDERED: GLUCAGON FOR INJ 1 MG VIAL SQ PRN (19:11)
[2022-10-01] MEDS ORDERED: SODIUM PHOSPHATE 3 MMOL/1 ML INFUSION IV ONE (19:11)
[2022-10-01] MEDS ORDERED: ACETAMINOPHEN 325 MG TAB PO PRN (19:11)
[2022-10-01] MEDS ORDERED: DEXTROSE 50% 50 ML SYRINGE IV PRN (19:11)
[2022-10-01] MEDS ORDERED: CETIRIZINE HCL 10 MG TABLET PO PRN (19:11)
[2022-10-01] MEDS ORDERED: GLUCOSE 10 TAB/TUBE PO PRN (19:11)
[2022-10-01] MEDS ORDERED: CARBOHYDRATES FOR HYPOGLYCEMIA PO PRN (19:11)
[2022-10-01] MEDS ORDERED: POLYETHYLENE (MIRALAX) 17 GM PACK PO PRN (19:11)
[2022-10-01] MEDS ORDERED: SODIUM PHOSPHATE IV ONE (19:30)
[2022-10-01] MEDS ORDERED: SODIUM CHLORIDE 0.9% IV ONE (19:30)
[2022-10-01] MEDS ORDERED: LANTUS PER UNIT CHARGE SQ ONE ×2 (19:45→22:15)
[2022-10-01] MEDS ORDERED: SODIUM PHOSPHATE 21 MMOL in SODIUM CHLORIDE 0.9% 500 ML IV ONE (19:45)
[2022-10-01] MEDS: LEVALBUTEROL HCL 0.63 MG/3 ML NEB NEB SCH (21:09)
[2022-10-01] MEDS: IPRATROPIUM BROMIDE NEB SOLN 0.02% 2.5 ML VIAL NEB SCH (21:09)
[2022-10-01] MEDS: APIXABAN 5 MG TABLET PO SCH (22:20)
[2022-10-01] MEDS: FUROSEMIDE 40 MG TAB PO SCH (22:21)
[2022-10-01] MEDS: METOPROLOL SUCC 50MG EXT REL TAB PO SCH (22:21)
[2022-10-01] MEDS: DOXYCYCLINE HYCLATE 100 MG CAP PO SCH (22:21)
[2022-10-01] MEDS: QUEtiapine FUMARATE 100 MG TABLET PO SCH (22:22)
[2022-10-01] MEDS: VALSARTAN/SACUBITRIL 26/24MG TAB PO SCH (22:22)
[2022-10-01] MEDS: OSELTAMIVIR PHOSPHATE 75 MG CAP PO SCH (22:22)
[2022-10-01] MEDS: INSULIN ASPART PER UNIT SC SCH (22:36)
[2022-10-02] MEDS ORDERED: INSULIN ASPART PER UNIT SC ONE (02:00)
[2022-10-02 06:37] LABS: Hematocrit (blood only) 41.7 % (40.1-51.0); Hemoglobin 13.7 g/dl (14.0-18.0); Mean Corpuscular Hemoglobin 30.3 pg (25.0-34.0); Mean Corpuscular Hgb Conc 32.9 g/dL (32.0-36.0); Mean Corpuscular Volume 92.3 fL (80.0-100.0); Mean Platelet Volume 9.5 fL (9.4-12.4); Platelet Count 250 K/uL (130-400); RDW Coefficient of Variation 13.9 % (11.5-14.5); RDW Standard Deviation 47.2 fL (36.4-46.3); Red Blood Count 4.52 M/uL (4.63-6.08); White Blood Count 6.44 K/ul (4.8-10.8)
--- NOTE | 2022-10-02 06:38 | Electrocardiogram Report ---
Test Reason : Blood Pressure : / mmHG Vent. Rate : 137 BPM Atrial Rate : 137 BPM P-R Int : 150 ms QRS Dur : 096 ms QT Int : 296 ms P-R-T Axes : 059 268 031 degrees QTc Int : 446 ms Sinus tachycardia Premature atrial complexes Low voltage QRS Inferior infarct (cited on or before 01-OCT-2022) Poor R wave progression, consider anterior IN vs. lead placement vs. LVH Abnormal ECG When compared with ECG of 01-OCT-2022 13:48, Sinus rhythm has replaced Supraventricular tachycardia Confirmed by Johnny Arellano ([id number]) on 10/02/2022 6:38:46 AM Referred By: REFERRED SELF Confirmed By:Johnny Arellano
--- NOTE | 2022-10-02 06:38 | Electrocardiogram Report ---
Test Reason : Blood Pressure : / mmHG Vent. Rate : 163 BPM Atrial Rate : 174 BPM P-R Int : 000 ms QRS Dur : 096 ms QT Int : 318 ms P-R-T Axes : 000 -73 046 degrees QTc Int : 523 ms Supraventricular tachycardia Left axis deviation Low voltage QRS Inferior infarct , age undetermined Cannot rule out Anterior infarct , age undetermined Abnormal ECG No previous ECGs available Confirmed by Johnny Arellano ([id number]) on 10/02/2022 6:37:57 AM Referred By: REFERRED SELF Confirmed By:Johnny Arellano
[2022-10-02 06:59] LABS: BUN Creatinine Ratio 15.8 (10-20); Calcium 8.4 mg/dl (8.5-10.1); Creatinine Clr Calc Pharmacy 105.1 ml/min; Est GFR (African American) 75.4 ml/min; Magnesium 1.9 mg/dl (1.7-2.4); Potassium 4.7 mmol/L (3.5-5.1)
[2022-10-02] MEDS: LEVALBUTEROL HCL 0.63 MG/3 ML NEB NEB SCH ×4 (07:34→19:25)
[2022-10-02] MEDS: IPRATROPIUM BROMIDE NEB SOLN 0.02% 2.5 ML VIAL NEB SCH ×4 (07:35→19:25)
[2022-10-02] MEDS ORDERED: LANTUS PER UNIT CHARGE SQ ONE (09:00)
--- NOTE | 2022-10-02 09:01 | Electrocardiogram Report ---
Test Reason : Blood Pressure : / mmHG Vent. Rate : 081 BPM Atrial Rate : 081 BPM P-R Int : 174 ms QRS Dur : 104 ms QT Int : 426 ms P-R-T Axes : 049 -64 -23 degrees QTc Int : 494 ms Normal sinus rhythm Left axis deviation Pulmonary disease pattern Old Inferior infarct (cited on or before 01-OCT-2022) Diffuse Nonspecific T wave abnormality Abnormal ECG When compared with ECG of 01-OCT-2022 14:03, Vent. rate has decreased BY 56 BPM Inverted T waves have replaced nonspecific T wave abnormality in Inferior leads Nonspecific T wave abnormality now evident in Anterolateral leads Confirmed by Bolivar Treadwell ([id number]) on 10/02/2022 9:01:28 AM Referred By: REFERRED SELF Confirmed By:Bolivar Treadwell
[2022-10-02] MEDS: FUROSEMIDE 40 MG TAB PO SCH ×2 (09:25→20:34)
[2022-10-02] MEDS: VALSARTAN/SACUBITRIL 26/24MG TAB PO SCH ×2 (09:25→20:35)
[2022-10-02] MEDS: APIXABAN 5 MG TABLET PO SCH ×2 (09:26→20:34)
[2022-10-02] MEDS: DOXYCYCLINE HYCLATE 100 MG CAP PO SCH ×2 (09:26→20:34)
[2022-10-02] MEDS: FLUTICASONE/VILANTEROL 100/25MCG 14 PUFFS/INHALER INH SCH (09:27)
[2022-10-02] MEDS: VENLAFAXINE HCL XR 75 MG CAPXR PO SCH (09:28)
[2022-10-02] MEDS: PANTOprazole 40 MG TAB PO SCH (09:29)
[2022-10-02] MEDS: OSELTAMIVIR PHOSPHATE 75 MG CAP PO SCH ×2 (09:32→20:34)
[2022-10-02] MEDS: METOPROLOL SUCC 50MG EXT REL TAB PO SCH ×2 (09:36→20:34)
[2022-10-02] MEDS: predniSONE 20 MG TAB PO SCH (09:37)
[2022-10-02] MEDS: INSULIN ASPART PER UNIT SC SCH ×4 (09:59→20:45)
--- NOTE | 2022-10-02 10:24 | Pharmacy Report ---
Pharmacy Glycemic Short Note 2 - Date of Service October 02, 2022 - Glycemic Short BSG Results (Last 24 hours): 10/01/22 10/01/22 10/01/22 13:53 18:49 20:21 Glucose 165 H POC Glucose 186 H 219 H 10/02/22 10/02/22 10/02/22 01:44 06:08 07:54 Glucose 238 H POC Glucose 256 H 217 H OUTPATIENT ANTIDIABETIC REGIMEN: * N/A ASSESSMENT: * Dilip Langston is a 42 yr old male on admission for influenza. He is a newly diagnosed T2DM on this admission. He received a single dose of Solumedrol 60mg IV yesterday then transitioned to Prednisone 20 PO daily, today. He received a single dose of Lantus 20 units yesterday evening and his fasting BSG was 238 mg/dl this AM. Gave another dose of Lantus 20 units this morning and tightened Novolog parameters. Will trend BSG to guide decision on insulin dose. PLAN FOR INPATIENT GLYCEMIC CONTROL: * Basal insulin * Lantus 20 units SQ X 1 * Bolus insulin * NovoLog per scale ACHS or Q6hrs while NPO * Goal Range: Low 110 mg/dL - High 140 mg/dL * Correction Factor: 15 mg/dL/unit * Nutritional / Prandial insulin per carb ratio of 1 unit per 5 grams CHO consumed
--- NOTE | 2022-10-02 12:13 | Hospitalist Progress Note ---
Date of Service October 02, 2022 Assessment & Plan (1) Influenza: Plan: Acute Respiratory failure with hypoxia Secondary to influenza A, COPD Exacerbation H/O SHARYN on CPAP HS --CXR:Cardiomegaly without pulmonary edema. Blunting of the costophrenic angles may be secondary to atelectasis versus trace effusions. --Continue oseltamivir --procalcitonin: 0.4 --Continue prednisone, nebs, doxycycline --Supplemental oxygen as needed to keep oxygen saturations 88 to 92% SVT A. fib RVR H/O P.Afib Sinus tachycardia Was not taking amiodarone as prescribed as concerned for side effects Increase metoprolol to 50mg BID On Eliquis for anticoagulation Currently in sinus Advised to follow up with cardiology as outpatient Hypomagnesemia Hypophosphatemia Replace electrolytes as needed Monitor DM Type II: New diagnosis Currently not on any medication HbA1C: 8.0 on 09/27/22 ISS, basal Insulin, Accu checks, Diabetic diet Pharmacy Glycemic control consult clinical trial educator consulted Ongoing tobacco use disorder Patient refused nicotine patch States that he is trying to cut down smoking H/O PE On Eliquis H/O seizures Currently not on any medications H/O CHF with preserved EF Nonischemic cardiomyopathy Continue Lasix, Entresto, metoprolol CKD stage III Monitor renal function Avoid nephrotoxic agents as able Anxiety and depression Continue home medications Subclinical hypothyroidism Secondary hyperparathyroidism As per records Currently not on medications DVT Px: Eliquis Code Status Full Code Admission and Anticipated Discharge Date Admission Date: October 01, 2022 Subjective Patient is seen and examined at bedside States feeling better today Shortness of breath much improved Still has no expectorant cough No diarrhea today Denies any chest pain, dizziness, nausea, vomiting, abdominal pain Eager to get discharged Saturating low 90s on room In Sinus on monitor Review of Systems Review of Systems: All systems reviewed & are unremarkable except as noted in Subjective Physical Exam Physical Exam: Physical Exam: Vitals signs as noted above General Appearance:Morbidly Obese, no apparent distress Head: normocephalic, Atraumatic Eyes: normal inspection, EOMI Neck: supple, Trachea midline Respiratory/Chest: Decreased breath sounds, CTA, No accessory muscle use Cardiovascular: S1, S2, No murmur Abdomen/GI:Soft, Non tender, Bowel sounds present Extremities/Musculoskeletal:normal inspection, Trace edema Neurologic/Psych:AAOX3, grossly no focal neurological deficits Skin: normal color, warm Results & Data Results & Data ([facility]) Vital Signs (Past 12 Hours) Vital Signs Temp Pulse Pulse Resp BP Pulse Ox O2 Del Method 10/02/22 11:10 Room Air 10/02/22 10:59 90 18 90 Room Air 10/02/22 08:03 36.5 C 84 20 108/57 L 90 Room Air 10/02/22 07:35 82 20 92 BiPAP 10/02/22 07:35 82 20 92 10/02/22 07:15 89 10/02/22 03:25 94 H 20 94 10/02/22 02:49 36.6 C 92 H 20 100/69 93 BiPAP 10/02/22 01:33 87 26 H 90 O2 Flow Rate 10/02/22 11:10 10/02/22 10:59 10/02/22 08:03 10/02/22 07:35 6 10/02/22 07:35 6 10/02/22 07:15 10/02/22 03:25 6 10/02/22 02:49 10/02/22 01:33 11 Laboratory Results Short CBC 10/01/22 10/02/22 Range/Units 13:53 06:08 WBC 9.51 6.44 (4.8-10.8) K/ul Hgb 14.2 13.7 L (14.0-18.0) g/dl Hct 43.3 41.7 (40.1-51.0) % Plt Count 258 250 (130-400) K/uL BMP 10/01/22 10/02/22 13:53 06:08 Sodium 136 135 L Potassium 4.3 4.7 Chloride 97 L 100 Carbon Dioxide 32 30 BUN 14 21 Creatinine 1.25 1.33 Glucose 165 H 238 H Calcium 8.7 8.4 L Liver Function 10/01/22 Range/Units 13:53 Total Bilirubin 0.7 (0.2-1.0) mg/dl AST 17 (13-39) U/L ALT 14 (7-52) U/L Alkaline Phosphatase 88 (34-104) U/L Albumin 3.9 (3.4-5.0) gm/dl
[2022-10-02] MEDS: QUEtiapine FUMARATE 100 MG TABLET PO SCH (20:34)
[2022-10-02] MEDS ORDERED: LANTUS PER UNIT CHARGE SQ SCH (21:00)
[2022-10-03] MEDS: INSULIN ASPART PER UNIT SC SCH ×3 (00:03→09:04)
[2022-10-03 06:02] LABS: Hematocrit (blood only) 41.6 % (40.1-51.0); Hemoglobin 13.3 g/dl (14.0-18.0); Mean Corpuscular Hemoglobin 30.3 pg (25.0-34.0); Mean Corpuscular Volume 94.8 fL (80.0-100.0); Mean Platelet Volume 9.6 fL (9.4-12.4); Platelet Count 223 K/uL (130-400); RDW Coefficient of Variation 14.3 % (11.5-14.5); RDW Standard Deviation 49.1 fL (36.4-46.3); Red Blood Count 4.39 M/uL (4.63-6.08); White Blood Count 10.46 K/ul (4.8-10.8)
[2022-10-03 06:27] LABS: BUN Creatinine Ratio 22.3 (10-20); Calcium 8.5 mg/dl (8.5-10.1); Est GFR (African American) 61.7 ml/min; Est GFR (Non-African American) 53.2 ml/min; Magnesium 2.1 mg/dl (1.7-2.4); Phosphorus 3.8 mg/dl (2.5-4.9); Potassium 4.8 mmol/L (3.5-5.1)
[2022-10-03] MEDS: IPRATROPIUM BROMIDE NEB SOLN 0.02% 2.5 ML VIAL NEB SCH ×2 (07:06→11:03)
[2022-10-03] MEDS: LEVALBUTEROL HCL 0.63 MG/3 ML NEB NEB SCH ×2 (07:07→11:03)
[2022-10-03] MEDS: FLUTICASONE/VILANTEROL 100/25MCG 14 PUFFS/INHALER INH SCH (08:30)
[2022-10-03] MEDS: OSELTAMIVIR PHOSPHATE 75 MG CAP PO SCH (08:31)
[2022-10-03] MEDS: METOPROLOL SUCC 50MG EXT REL TAB PO SCH (08:31)
[2022-10-03] MEDS: PANTOprazole 40 MG TAB PO SCH (08:31)
[2022-10-03] MEDS: APIXABAN 5 MG TABLET PO SCH (08:31)
[2022-10-03] MEDS: DOXYCYCLINE HYCLATE 100 MG CAP PO SCH (08:31)
[2022-10-03] MEDS: VALSARTAN/SACUBITRIL 26/24MG TAB PO SCH (08:31)
[2022-10-03] MEDS: FUROSEMIDE 40 MG TAB PO SCH (08:31)
[2022-10-03] MEDS: VENLAFAXINE HCL XR 75 MG CAPXR PO SCH (08:32)
[2022-10-03] MEDS: predniSONE 20 MG TAB PO SCH (08:32)
[2022-10-03] MEDS ORDERED: LANTUS PER UNIT CHARGE SQ SCH (08:45)
--- NOTE | 2022-10-03 12:03 | Hospitalist Progress Note ---
Date of Service October 03, 2022 Assessment & Plan (1) Influenza: Plan: Acute Respiratory failure with hypoxia Secondary to influenza A, COPD Exacerbation H/O SHARYN on CPAP HS --CXR:Cardiomegaly without pulmonary edema. Blunting of the costophrenic angles may be secondary to atelectasis versus trace effusions. --Continue oseltamivir --procalcitonin: 0.4 --Continue prednisone, nebs, doxycycline -- Saturating well on room air Plan to discharge home today SVT A. fib RVR H/O P.Afib Sinus tachycardia Was not taking amiodarone as prescribed as concerned for side effects Increase metoprolol to 50mg BID On Eliquis for anticoagulation Currently in sinus Advised to follow up with cardiology as outpatient Hypomagnesemia Hypophosphatemia Replace electrolytes as needed Monitor DM Type II: New diagnosis Currently not on any medication HbA1C: 8.0 on 09/27/22 ISS, basal Insulin while hospitalized , Accu checks, Diabetic diet Pharmacy Glycemic control consult assistant health educator consulted Ongoing tobacco use disorder Patient refused nicotine patch States that he is trying to cut down smoking H/O PE On Eliquis H/O seizures Currently not on any medications H/O CHF with preserved EF Nonischemic cardiomyopathy Continue Lasix, Entresto, metoprolol CKD stage III Monitor renal function Avoid nephrotoxic agents as able Anxiety and depression Continue home medications Subclinical hypothyroidism Secondary hyperparathyroidism As per records Currently not on medications DVT Px: Eliquis Code Status Full Code Admission and Anticipated Discharge Date Admission Date: October 01, 2022 Subjective Patient is seen and examined at bedside States having poor sleep overnight but otherwise feels well Dyspnea resolved Cough much improved as well Denies any chest pain, dizziness, nausea, vomiting, abdominal pain Review of Systems Review of Systems: All systems reviewed & are unremarkable except as noted in Subjective Physical Exam Physical Exam: Physical Exam: Vitals signs as noted above General Appearance:Morbidly Obese, no apparent distress Head: normocephalic, Atraumatic Eyes: normal inspection, EOMI Neck: supple, Trachea midline Respiratory/Chest: Decreased breath sounds, CTA, No accessory muscle use Cardiovascular: S1, S2, No murmur Abdomen/GI:Soft, Non tender, Bowel sounds present Extremities/Musculoskeletal:normal inspection, Trace edema Neurologic/Psych:AAOX3, grossly no focal neurological deficits Skin: normal color, warm Results & Data Results & Data ([facility]) Vital Signs (Past 12 Hours) Vital Signs Temp Pulse Pulse Pulse Resp BP Pulse Ox 10/03/22 11:53 36.4 C L 89 19 99/64 L 92 10/03/22 11:05 80 18 96 10/03/22 08:00 10/03/22 07:40 36.3 C L 66 19 103/58 L 100 10/03/22 07:09 68 19 97 10/03/22 03:40 36.7 C 73 20 108/75 95 10/03/22 01:46 79 O2 Del Method O2 Flow Rate 10/03/22 11:53 Room Air 10/03/22 11:05 Room Air 10/03/22 08:00 Room Air 10/03/22 07:40 Room Air 10/03/22 07:09 BiPAP 6 10/03/22 03:40 Room Air 10/03/22 01:46 Laboratory Results Short CBC 10/03/22 Range/Units 05:41 WBC 10.46 (4.8-10.8) K/ul Hgb 13.3 L (14.0-18.0) g/dl Hct 41.6 (40.1-51.0) % Plt Count 223 (130-400) K/uL BMP 10/03/22 05:41 Sodium 139 Potassium 4.8 Chloride 102 Carbon Dioxide 32 BUN 35 H Creatinine 1.57 H Glucose 129 H Calcium 8.5
--- NOTE | 2022-10-03 12:27 | Discharge Summary ---
Date of Service October 03, 2022 Admission HPI Per Admitting Provider Patient is a 42-year-old male with history of paroxysmal atrial fibrillation on chronic anticoagulation with Eliquis, pulmonary embolism, COPD, CHF S/P ICD, CKD stage III, anxiety and depression, hypertension, dyslipidemia, tobacco use disorder, subclinical hypothyroidism, secondary hyperparathyroidism, h/o noncompliance, seizure disorder, alcohol use and other medical problems presents with history of worsening shortness of breath associated with cough, nausea since 1 day duration. Apparently patient states that he is doing well until yesterday. He reports that he woke up this morning and felt that he was gasping for air. He also noted to have cough with clear expectoration associated with dry heaving and palpitations. He admits to have 3 loose bowel movements today. Patient has been using only albuterol and Advair inhalers as needed and currently out of his rescue inhaler. He is trying to quit smoking and currently smokes 3 cigarettes/day. He reports intermittent palpitations and chills but no fever. He felt very dizzy this morning, resulting in a fall but denies any head trauma or loss of consciousness. States using CPAP at bedtime. He was found to be in and out of atrial fibrillation while in ED. Denies any history of chest pain, pedal edema, wheezing, hemoptysis, fever, headache, numbness, change in vision, vomiting, abdominal pain, dysuria, hematuria. Admission Exam Per Admitting Provider Physical Exam: Vitals signs as noted above General Appearance:Morbidly Obese, no apparent distress Head: normocephalic, Atraumatic Eyes: normal inspection, EOMI Neck: supple, Trachea midline Respiratory/Chest: Decreased breath sounds, CTA, No accessory muscle use Cardiovascular: S1, S2, Tachycardia, No murmur Abdomen/GI:Soft, Non tender, Bowel sounds present Extremities/Musculoskeletal:normal inspection, Trace edema Neurologic/Psych:AAOX3, grossly no focal neurological deficits Skin: normal color, warm Principal Diagnosis Acute Respiratory failure with hypoxia Influenza A, COPD Exacerbation Supraventricular tachycardia Atrial fibrillation with rapid ventricular response Hypomagnesemia Hypophosphatemia Diabetes mellitus type 2 Discharge Data Allergies Allergy/AdvReac Type Severity Reaction Status Date / Time azithromycin Allergy Severe Anaphylaxis Verified 10/02/22 10:04 pollen extracts Allergy Intermediate SNEEZING, Verified 10/02/22 10:04 CONGESTION sulfamethoxazole Allergy Intermediate Hives Verified 10/02/22 10:04 [From Bactrim] trimethoprim [From Bactrim] Allergy Intermediate Hives Verified 10/02/22 10:04 Consultations 10/01/22 16:10 ED Decision to Admit Stat Procedures Performed Laboratory Results WBC 10.46 K/ul (4.8-10.8) 10/03/22 05:41 RBC 4.39 M/uL (4.63-6.08) L 10/03/22 05:41 Hgb 13.3 g/dl (14.0-18.0) L 10/03/22 05:41 Hct 41.6 % (40.1-51.0) 10/03/22 05:41 MCV 94.8 fL (80.0-100.0) 10/03/22 05:41 MCH 30.3 pg (25.0-34.0) 10/03/22 05:41 MCHC 32.0 g/dL (32.0-36.0) 10/03/22 05:41 RDW Std Deviation 49.1 fL (36.4-46.3) H 10/03/22 05:41 RDW Coeff of Pradeep 14.3 % (11.5-14.5) 10/03/22 05:41 Plt Count 223 K/uL (130-400) 10/03/22 05:41 MPV 9.6 fL (9.4-12.4) 10/03/22 05:41 Immature Gran % (Auto) 0.7 % 10/01/22 13:53 Neut % (Auto) 78.4 % 10/01/22 13:53 Lymph % (Auto) 10.2 % 10/01/22 13:53 [place] % (Auto) 8.3 % 10/01/22 13:53 Eos % (Auto) 2.0 % 10/01/22 13:53 Baso % (Auto) 0.4 % 10/01/22 13:53 Neut # (Auto) 7.45 K/uL (1.4-6.5) H 10/01/22 13:53 Lymph # (Auto) 0.97 K/uL (1.2-3.4) L 10/01/22 13:53 [place] # (Auto) 0.79 K/uL (0.24-0.82) 10/01/22 13:53 Eos # (Auto) 0.19 K/uL (0-0.50) 10/01/22 13:53 Baso # (Auto) 0.04 K/uL (0-0.2) 10/01/22 13:53 Immature Gran # (Auto) 0.07 K/uL (0.00-0.02) H 10/01/22 13:53 Absolute Nucleated RBC 0.02 K/uL (0-0) H 10/01/22 13:53 Nucleated RBC % (auto) 0.2 % 10/01/22 13:53 PT 11.2 Seconds (9.0-12.0) 10/01/22 14:39 INR 1.1 (0.9-1.1) 10/01/22 14:39 APTT 28.3 Seconds (21.0-31.0) 10/01/22 14:39 PTT Ratio 1.0 10/01/22 14:39 VBG pH 7.45 (7.36-7.41) H 10/01/22 14:39 VBG pCO2 47 mmHg (38-50) 10/01/22 14:39 VBG pO2 64 mmHg 10/01/22 14:39 VBG HCO3 33 mmol/L 10/01/22 14:39 VBG O2 Saturation 94.1 % 10/01/22 14:39 VBG Base Excess 7.5 mEq/L 10/01/22 14:39 Sodium 139 mmol/L (136-145) 10/03/22 05:41 Potassium 4.8 mmol/L (3.5-5.1) 10/03/22 05:41 Chloride 102 mmol/L (98-107) 10/03/22 05:41 Carbon Dioxide 32 mmol/L (21-32) 10/03/22 05:41 Anion Gap 5 (3-11) 10/03/22 05:41 BUN 35 mg/dl (6-23) H 10/03/22 05:41 Creatinine 1.57 mg/dl (0.6-1.4) H 10/03/22 05:41 Est Cr Clr Drug Dosing 88.0 ml/min 10/03/22 05:41 Est GFR ( Amer) 61.7 ml/min 10/03/22 05:41 Est GFR (Non-Af Amer) 53.2 ml/min 10/03/22 05:41 BUN/Creatinine Ratio 22.3 (10-20) H 10/03/22 05:41 Glucose 129 mg/dl (70-99(Fasting)) H 10/03/22 05:41 POC Glucose 155 mg/dl (70-99) H 10/03/22 12:10 Calcium 8.5 mg/dl (8.5-10.1) 10/03/22 05:41 Phosphorus 3.8 mg/dl (2.5-4.9) 10/03/22 05:41 Magnesium 2.1 mg/dl (1.7-2.4) 10/03/22 05:41 Total Bilirubin 0.7 mg/dl (0.2-1.0) 10/01/22 13:53 AST 17 U/L (13-39) 10/01/22 13:53 ALT 14 U/L (7-52) 10/01/22 13:53 Alkaline Phosphatase 88 U/L (34-104) 10/01/22 13:53 Troponin I High Sens 10.6 pg/ml (0-20) 10/01/22 16:05 B-Natriuretic Peptide 54 pg/ml (0-100) 10/01/22 14:39 Total Protein 7.5 gm/dl (6.0-8.3) 10/01/22 13:53 Albumin 3.9 gm/dl (3.4-5.0) 10/01/22 13:53 Globulin 3.6 gm/dl (2.5-4.0) 10/01/22 13:53 Albumin/Globulin Ratio 1.1 (0.9-2) 10/01/22 13:53 Procalcitonin 0.40 ng/ml (0-0.5) 10/02/22 06:08 Adenovirus (PCR) Not Detected (NotDetected) 10/01/22 13:52 B. pertussis DNA (PCR) Not Detected (NotDetected) 10/01/22 13:52 B.parapertussis DNA PCR Not Detected (NotDetected) 10/01/22 13:52 C. pneumoniae DNA (PCR) Not Detected (NotDetected) 10/01/22 13:52 Coronavirus OC43 (PCR) Not Detected (NotDetected) 10/01/22 13:52 Coronavirus HKU1 (PCR) Not Detected (NotDetected) 10/01/22 13:52 Coronavirus 229E (PCR) Not Detected (NotDetected) 10/01/22 13:52 SARS-CoV-2 (PCR) Not Detected (NotDetected) 10/01/22 13:52 Coronavirus NL63 (PCR) Not Detected (NotDetected) 10/01/22 13:52 Human Metapneumovir PCR Not Detected (NotDetected) 10/01/22 13:52 Influenza A (H3) PCR DETECTED (NotDetected) A* 10/01/22 13:52 Influenza Type B (PCR) Not Detected (NotDetected) 10/01/22 13:52 M. pneumoniae (PCR) Not Detected (NotDetected) 10/01/22 13:52 Parainfluenza 1 (PCR) Not Detected (NotDetected) 10/01/22 13:52 Parainfluenza 2 (PCR) Not Detected (NotDetected) 10/01/22 13:52 Parainfluenza 3 (PCR) Not Detected (NotDetected) 10/01/22 13:52 Parainfluenza 4 (PCR) Not Detected (NotDetected) 10/01/22 13:52 RSV (PCR) Not Detected (NotDetected) 10/01/22 13:52 Entero/Rhino (PCR) Not Detected (NotDetected) 10/01/22 13:52 Impressions Chest X-Ray 10/01/22 13:36 XR chest 1V portable HISTORY: 42 years-old Male dyspnea, suspect COPD exacerbation acute shortness of breath COMPARISON: None TECHNIQUE: Portable AP view of the chest FINDINGS: Cardiac silhouette is enlarged. Single lead left subclavian pacer/AICD. No pneumothorax or overt pulmonary edema. Blunting of the costophrenic angles. Mild right hemidiaphragmatic elevation. Bones appear grossly intact. IMPRESSION: 1. Cardiomegaly without pulmonary edema. 2. Blunting of the costophrenic angles may be secondary to atelectasis versus trace effusions. ACT 112: Negative or not required by law. The above report was generated using voice recognition software. It may contain grammatical, syntax or spelling errors. Electronically signed by: Christoph Leavitt M.D. 10/01/2022 2:16 PM Hospital Course (1) Influenza: Acute Respiratory failure with hypoxia Secondary to influenza A, COPD Exacerbation H/O SHARYN on CPAP HS --CXR:Cardiomegaly without pulmonary edema. Blunting of the costophrenic angles may be secondary to atelectasis versus trace effusions. --Continue oseltamivir --procalcitonin: 0.4 --Continue prednisone, nebs, doxycycline -- Saturating well on room air Plan to discharge home today SVT A. fib RVR H/O P.Afib Sinus tachycardia Was not taking amiodarone as prescribed as concerned for side effects Increase metoprolol to 50mg BID On Eliquis for anticoagulation Currently in sinus Advised to follow up with cardiology as outpatient Hypomagnesemia Hypophosphatemia Replace electrolytes as needed Monitor DM Type II: New diagnosis Currently not on any medication HbA1C: 8.0 on 09/27/22 ISS, basal Insulin while hospitalized , Accu checks, Diabetic diet Pharmacy Glycemic control consult diabetic educator consulted Ongoing tobacco use disorder Patient refused nicotine patch States that he is trying to cut down smoking H/O PE On Eliquis H/O seizures Currently not on any medications H/O CHF with preserved EF Nonischemic cardiomyopathy Continue Lasix, Entresto, metoprolol CKD stage III Monitor renal function Avoid nephrotoxic agents as able Anxiety and depression Continue home medications Subclinical hypothyroidism Secondary hyperparathyroidism As per records Currently not on medications DVT Px: Eliquis Code Status Full Code Total Time Total Time Spent Total Time Spent (In Minutes): 49 minutes Discharge Plan Discharge Items Patient Disposition: Home - Self-Care Reason For Visit: SHORTNESS OF BREATH Discharge Diagnosis: Acute Respiratory failure with hypoxia Influenza A, COPD Exacerbation Supraventricular tachycardia Atrial fibrillation with rapid ventricular response Hypomagnesemia Hypophosphatemia Diabetes mellitus type 2 Condition on Discharge: Fair Activity: Per Instructions section Exercise/Sports: Gradually increase as tolerated Non-emergency contact: Primary Care Provider and [facility] Call non-emergency contact if: you have any medication questions, your symptoms worsen, your pain is concerning for you and you have a fever Follow-up/Referrals: Wendy Saha PA-C [Outside Practitioners] - (Date & Time 10/10/2022 3:00 PM Provider Wendy Saha PA-C Department Family Practice [facility] ) Diet: Carb Consistent or DM2 and Heart Healthy Addtl Attending Provider Instructions: Follow-up with your primary care physician Wendy Saha PA-C on 10/10/2022 3:00 PM as scheduled Follow-up with your gastroenterology manager in 1 to 2 weeks as advised --Complete doxycycline, oseltamivir course as prescribed. -- Your metoprolol dose is increased to 50 mg twice a day. Further recommendations as per your gastroenterology manager. --- Discuss with your physician for further adjustment of medications for management of diabetes as advised. -- Check your blood glucose levels regularly as advised. Seek immediate medical attention if your symptoms reoccur or worsen Please take all medications as instructed on discharge list below. Please call if you have any questions or problems. You can reach a [facility] hospitalist on duty at [facility] 24 hours a day by calling [phone] Pending Studies at Discharge: No Stand-Alone Forms: My [facility], Smoking Cessation Medications and DC Order Prescriptions: New doxycycline hyclate 100 mg Capsule 100 mg PO BID Qty: 6 6RF oseltamivir [Tamiflu] 75 mg Capsule 75 mg PO BID Qty: 7 0RF (DME) blood-glucose meter [OneTouch Verio Meter] [facility] See Rx Instructions .Route Qty: 1 0RF Rx Instructions: Check blood glucose levels once a day as directed (DME) OneTouch Verio test strips Strip See Rx Instructions .Route Qty: 100 0RF Rx Instructions: Check blood glucose levels once a day as directed (DME) lancets [OneTouch Delica Lancets] 33 gauge misc See Rx Instructions .Route Qty: 100 0RF Rx Instructions: Check blood glucose levels once a day as directed metformin 500 mg tablet extended release 24 hr 500 mg PO DAILY Qty: 30 0RF Continued furosemide [Lasix] 40 mg Tablet 40 mg PO AMHS acetaminophen [Tylenol] 325 mg Tablet 650 mg PO Q6H PRN (Reason: PAIN/FEVER) venlafaxine [Effexor XR] 75 mg Capsule,Extended Release 24hr 75 mg PO QAM cetirizine [Zyrtec] 10 mg Tablet 10 mg PO DAILY PRN (Reason: SEASONAL ALLERGIES) ondansetron HCl [Zofran] 8 mg Tablet 8 mg PO Q8H PRN (Reason: NAUSEA/VOMITING) quetiapine [Seroquel] 100 mg Tablet 100 mg PO HS mupirocin 2 % Ointment 1 applic TOPICAL DAILY fluticasone propion-salmeterol [Advair Diskus] 100-50 mcg/dose Blister With Device 1 inh INHALATION BID Icy Hot (menthol) 5 % Adhesive Patch,Medicated 1 patch TOPICAL DAILY PRN (Reason: Back Pain) omeprazole 20 mg Tablet,Delayed Release (Dr/Ec) 20 mg PO QAM Children's Multivitamin Tablet,Chewable 1 tab PO DAILY Eliquis 5 mg Tablet 5 mg PO BID Entresto 24-26 mg Tablet 1 tab PO BID Changed metoprolol succinate 25 mg Tablet Extended Release 24 Hr 50 mg PO BID 30 Days Qty: 120 0RF Discharge Orders: Discharge Order (Routine); Ordered 10/03/22 Ordered By: Joe Qiu Admission Data Admit Date/Time: 10/01/22 17:13 Attending Provider: Joe Qiu Admit Provider: Joe Qiu Primary Care Provider: PCP,NO Other Providers: Joe Qiu
== END 2022-10-03 13:06 | disposition home or self-care (01) | DRG 193 ==
LOC: ED 13:04 → 4W 17:13 → MERGE 17:13 → 4W 18:29